=== PATIENT | female | born 1935 | race Caucasian/White ===

== ENCOUNTER 2017-06-17 21:36 | Emergency (ER) | payer MEDICARE ==
[~2017-06-17] VITALS: Ht 157.5 cm; Wt 54.9 kg
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
[2017-06-17] MEDS ORDERED: LIDOCAINE /MPF 1% VIAL 5 ML VIAL ONE (23:24)
--- NOTE | 2017-06-17 23:30 | NUR ---
BEDSIDE FOR LAC REPAIR
[2017-06-17] MEDS ORDERED: TDAP [DIPH/PERTUSSIS/TET] 0.5 ML VIAL IM ONE (23:42)
--- NOTE | 2017-06-17 23:50 | NUR ---
LACERATION CLEANED AND BANDAID APPLIED. PT OK TO D/C
[2017-06-17 23:57] VITALS: BP 136/71
[2017-06-18] MEDS ORDERED: TDAP [DIPH/PERTUSSIS/TET] 0.5 ML VIAL IM ONE
== END 2017-06-17 23:58 | disposition home or self-care (01) ==
LOC: ER 21:39
DX: S61.412A Laceration without foreign body of left hand, initial encounter (principal); C50.912 Malignant neoplasm of unspecified site of left female breast; C50.911 Malignant neoplasm of unspecified site of right female breast; Z88.2 Allergy status to sulfonamides; Z88.6 Allergy status to analgesic agent; W26.0XXA Contact with knife, initial encounter; Y93.89 Activity, other specified; Y92.090 Kitchen in other non-institutional residence as the place of occurrence of the external cause; Y99.8 Other external cause status
CPT/HCPCS: 12001; 90471; 90715; 99283; A4606; A6402; J3490; Z7610